=== PATIENT | male | born 1965 | race African-American/Black ===

== ENCOUNTER 2018-08-01 11:01 | Emergency (ER) | payer MEDICAID ==
[~2018-08-01] VITALS: Ht 170.2 cm; Wt 64.0 kg
[~2018-08-01 11:01] MED LIST: ACET1TAB14 PO; ALBUTEROL; ALPR1TAB2 PO; AMBIEN; ATROVUD IH; COGENTIN PO; LURA40TA PO; MONT10TA21 PO; P20 PO; SERT50TA PO; advair PO
[2018-08-01 11:15] VITALS: BP 137/89
[2018-08-01] MEDS ORDERED: BACITRACIN ZINC OINT UDPKT TOP ONE (12:00)
[2018-08-01] MEDS ORDERED: LIDOCAINE HCL/PF 1% 10 MG/ML 5ML VIAL IJ ONE (12:00)
== END 2018-08-01 14:00 | disposition home or self-care (01) ==
LOC: ER 11:01
DX: L03.012 Cellulitis of left finger (principal); J45.909 Unspecified asthma, uncomplicated; F41.9 Anxiety disorder, unspecified; F31.9 Bipolar disorder, unspecified; R07.89 Other chest pain; Z88.0 Allergy status to penicillin; Z79.899 Other long term (current) drug therapy; Z87.891 Personal history of nicotine dependence
CPT/HCPCS: 10060; 71045; 99283; J3490

== ENCOUNTER 2018-08-14 11:22 | Emergency (ER) | payer MEDICAID ==
[~2018-08-14] VITALS: Ht 170.2 cm; Wt 67.0 kg
[2018-08-14] MEDS ORDERED: IBUPROFEN 600MG TABLET PO STA (12:31)
[2018-08-14] MEDS ORDERED: ONDANSETRON 4MG ODT PO STA (12:31)
[2018-08-14 13:16] LABS: BASOPHILS % 0.5 % (0.0-2.0); HEMATOCRIT. 40.9 % (42.0-52.0); HEMOGLOBIN. 13.8 g/dL (14.0-18.0); LYMPHOCYTES % 9.6 % (20.0-50.0); MEAN CORPUSCULAR HEMOGLOBIN 31.6 pg (28.0-32.0); MEAN CORPUSCULAR VOLUME 93.4 fL (80.0-94.0); MEAN PLATELET VOLUME 7.4 fl (7.4-10.4); MONOCYTES % 4.5 % (2.0-8.0); NEUTROPHILS % 85.4 % (40.0-76.0); PLATELET 247 x1000/uL (130-400); RED BLOOD CELL COUNT 4.38 mill/uL (4.7-6.1); RED CELL DISTRIBUTION WIDTH 13.9 % (11.6-14.6)
[2018-08-14 13:30] VITALS: BP 101/64
[2018-08-14 13:32] LABS: CHLORIDE 105 mEq/L (98-107)
== END 2018-08-14 17:05 | disposition home or self-care (01) ==
LOC: ER 11:22
DX: R05 Cough (principal); R07.89 Other chest pain; R06.3 Periodic breathing; R20.0 Anesthesia of skin; R20.2 Paresthesia of skin; F41.9 Anxiety disorder, unspecified; J45.909 Unspecified asthma, uncomplicated; F17.210 Nicotine dependence, cigarettes, uncomplicated; F31.9 Bipolar disorder, unspecified; Z88.0 Allergy status to penicillin
CPT/HCPCS: 36415; 71045; 80053; 84484; 85025; 87804; 93005; 99285; Q0162

== ENCOUNTER 2018-08-21 09:35 | Emergency (ER) | payer MEDICAID ==
[~2018-08-21] VITALS: Ht 170.2 cm; Wt 64.0 kg
[2018-08-21] MEDS ORDERED: ONDANSETRON HCL 4MG/2ML INJ IV STA (11:44)
[2018-08-21] MEDS ORDERED: MORPHINE SULFATE 4 MG/ML CPJ (NOT FOR IM USE) IV STA (11:44)
[2018-08-21] MEDS ORDERED: METHYLPREDNISOLONE SOD SUCC 125 MG/2 ML VIAL IV STA (11:44)
[2018-08-21] MEDS ORDERED: SODIUM CHLORIDE 0.9% 1,000 ML IV ONE (11:44)
[2018-08-21] MEDS ORDERED: IPRATROPIUM/ALBUTEROL 0.5-3(2.5)MG/3ML NEB HHN ONE (11:45)
[2018-08-21] MEDS ORDERED: MAGNESIUM 2 G PREMIX 50 ML IV ONE (11:45)
[2018-08-21] MEDS ORDERED: LEVOFLOXACIN 750MG PREMIX 150 ML IV ONE (11:45)
[2018-08-21 13:14] LABS: INR 1.1; PARTIAL THROMBOPLASTIN TIME 31.3 sec (23.4-31.0); PROTHROMBIN TIME 10.6 sec (9.1-11.1)
[2018-08-21 13:21] LABS: BASOPHILS % 0.5 % (0.0-2.0); CHLORIDE 111 mEq/L (98-107); EOSINOPHILS % 2.2 % (0.0-5.0); ETHANOL BLOOD < 10 mg/dL; HEMATOCRIT. 41.3 % (42.0-52.0); HEMOGLOBIN. 13.9 g/dL (14.0-18.0); LYMPHOCYTES % 39.1 % (20.0-50.0); MEAN CORPUSCULAR HEMOGLOBIN 31.4 pg (28.0-32.0); MEAN CORPUSCULAR VOLUME 93.8 fL (80.0-94.0); MEAN PLATELET VOLUME 7.7 fl (7.4-10.4); MONOCYTES % 11.4 % (2.0-8.0); NEUTROPHILS % 46.8 % (40.0-76.0); PLATELET 202 x1000/uL (130-400); RED BLOOD CELL COUNT 4.41 mill/uL (4.7-6.1); RED CELL DISTRIBUTION WIDTH 13.4 % (11.6-14.6)
[2018-08-21 15:54] VITALS: BP 109/70
== END 2018-08-21 15:57 | disposition home or self-care (01) ==
LOC: ER 09:35
DX: J45.901 Unspecified asthma with (acute) exacerbation (principal); F41.9 Anxiety disorder, unspecified; F31.9 Bipolar disorder, unspecified; E78.00 Pure hypercholesterolemia, unspecified; Z87.891 Personal history of nicotine dependence; Z88.0 Allergy status to penicillin; Z79.899 Other long term (current) drug therapy
CPT/HCPCS: 36415; 71045; 80053; 83880; 84484; 85025; 85610; 85730; 93005; 94640; 96365; 96366; 96375; 99285; G0482; J1956; J2270; J2405; J2930; J3475; J7030; J7620

== ENCOUNTER 2018-10-12 11:53 | Emergency (ER) | payer MEDICAID ==
[~2018-10-12] VITALS: Ht 170.2 cm; Wt 68.0 kg
[2018-10-12] MEDS ORDERED: MAGNESIUM 2 G PREMIX 50 ML IV STA (15:07)
[2018-10-12] MEDS ORDERED: ALBUTEROL (0.083%) 2.5MG/3ML NEB HHN STA ×2 (15:07→17:21)
[2018-10-12] MEDS ORDERED: METHYLPREDNISOLONE SOD SUCC 125 MG/2 ML VIAL IV STA (15:07)
[2018-10-12] MEDS ORDERED: IPRATROPIUM BROMIDE (0.02%) 0.5MG/2.5ML NEB HHN STA ×2 (15:07→17:21)
[2018-10-12] MEDS ORDERED: SODIUM CHLORIDE 0.9% 500 ML IV ONE (17:30)
[2018-10-12] MEDS ORDERED: ALBUTEROL (0.083%) 2.5MG/3ML NEB HHN ONE (20:00)
[2018-10-12] MEDS ORDERED: IPRATROPIUM BROMIDE (0.02%) 0.5MG/2.5ML NEB HHN ONE (20:00)
[2018-10-12 20:14] LABS: CHLORIDE 104 mEq/L (98-107)
[2018-10-12 20:16] LABS: HEMATOCRIT. 41.4 % (42.0-52.0); HEMOGLOBIN. 13.8 g/dL (14.0-18.0); LYMPHOCYTES % 11.5 % (20.0-50.0); MEAN CORPUSCULAR HEMOGLOBIN 31.2 pg (28.0-32.0); MEAN CORPUSCULAR VOLUME 93.6 fL (80.0-94.0); MEAN PLATELET VOLUME 8.8 fl (7.4-10.4); MONOCYTES % 7.7 % (2.0-8.0); NEUTROPHILS % 79.8 % (40.0-76.0); PLATELET 266 x1000/uL (130-400); RED BLOOD CELL COUNT 4.43 mill/uL (4.7-6.1); RED CELL DISTRIBUTION WIDTH 13.9 % (11.6-14.6)
[2018-10-12 21:30] VITALS: BP 109/71
== END 2018-10-12 22:40 | disposition home or self-care (01) ==
LOC: ER 11:53
DX: J45.901 Unspecified asthma with (acute) exacerbation (principal); F32.9 Major depressive disorder, single episode, unspecified; F31.9 Bipolar disorder, unspecified; Z79.899 Other long term (current) drug therapy; Z88.0 Allergy status to penicillin
CPT/HCPCS: 36415; 71045; 80048; 85025; 93005; 94640; 96365; 96366; 96375; 99284; J2930; J3475; J7040; J7611

== ENCOUNTER 2019-02-04 16:06 | Inpatient (IN) | payer MEDICAID ==
[~2019-02-04] VITALS: Ht 170.2 cm; Wt 70.1 kg
[2019-02-04] MEDS ORDERED: IPRATROPIUM BROMIDE (0.02%) 0.5MG/2.5ML NEB HHN STA (21:39)
[2019-02-04] MEDS ORDERED: METHYLPREDNISOLONE SOD SUCC 125 MG/2 ML VIAL IV STA (21:39)
[2019-02-04] MEDS ORDERED: ALBUTEROL (0.083%) 2.5MG/3ML NEB HHN STA (21:39)
[2019-02-04] MEDS ORDERED: ONDANSETRON HCL 4MG/2ML INJ IV STA (21:39)
[2019-02-04] MEDS ORDERED: SODIUM CHLORIDE 0.9% 1,000 ML IV ONE (21:39)
[2019-02-04] MEDS ORDERED: MORPHINE SULFATE 4 MG/ML CPJ (NOT FOR IM USE) IV STA (21:39)
[2019-02-04 22:46] LABS: HEMOGLOBIN. 16.4 g/dL (14.0-18.0); MEAN CORPUSCULAR HEMOGLOBIN 31.2 pg (28.0-32.0); MEAN CORPUSCULAR VOLUME 91.2 fL (80.0-94.0); MEAN PLATELET VOLUME 7.9 fl (7.4-10.4); PLATELET 353 x1000/uL (130-400); RED BLOOD CELL COUNT 5.26 mill/uL (4.7-6.1); RED CELL DISTRIBUTION WIDTH 13.8 % (11.6-14.6)
[2019-02-04 22:48] LABS: CHLORIDE 106 mEq/L (98-107)
[2019-02-04 22:52] LABS: ETHANOL BLOOD < 10 mg/dL
[2019-02-04 23:04] LABS: PLATELET ESTIMATE NORMAL
[2019-02-04 23:25] LABS: CLARITY URINE CLEAR (CLEAR); COLOR URINE YELLOW (YELLOW); KETONES URINE TRACE (NEGATIVE); LEUKOCYTE ESTERASE URINE NEGATIVE (NEGATIVE); NITRITE URINE NEGATIVE (NEGATIVE); OCCULT BLOOD URINE TRACE (NEGATIVE); PROTEIN URINE NEGATIVE (NEGATIVE); SPECIFIC GRAVITY URINE 1.025 (1.005-1.030); UROBILINOGEN URINE 0.2 E.U./dL (0.2-1.0)
[2019-02-04 23:59] LABS: *AMPHETAMINES SCREEN URINE PRESUMTIVE POSITIVE (NEGATIVE); *BARBITURATES SCREEN URINE NEGATIVE (NEGATIVE); *BENZODIAZEPINES SCREEN URINE NEGATIVE (NEGATIVE)
[2019-02-05] LABS: *COCAINE SCREEN URINE PRESUMTIVE POSITIVE (NEGATIVE); CANNABINOID URINE SCREEN PRESUMTIVE POSITIVE (NEGATIVE); METHADONE URINE SCREEN NEGATIVE (NEGATIVE); OPIATES URINE SCREEN PRESUMTIVE POSITIVE (NEGATIVE); PHENCYCLIDINE URINE SCREEN NEGATIVE (NEGATIVE)
[2019-02-05] MEDS ORDERED: METRONIDAZOLE 500 MG PREMIX 100 ML IV ONE (02:00)
[2019-02-05] MEDS ORDERED: LEVOFLOXACIN 750MG PREMIX 150 ML IV ONE (02:00)
[2019-02-05] MEDS ORDERED: IOHEXOL-300 100 ML BOTTLE ONE (03:11)
[2019-02-05 11:32] VITALS: BP 100/60
[2019-02-05] MEDS ORDERED: METRONIDAZOLE 500 MG PREMIX 100 ML IV SCH ×2 (11:45→22:00)
[2019-02-05] MEDS ORDERED: ONDANSETRON HCL 4MG/2ML INJ IV PRN (11:45)
[2019-02-05 12:00] VITALS: BP 93/69
[2019-02-05] MEDS: METHYLPREDNISOLONE SOD SUCC 40 MG/ML VIAL IV SCH ×2 (13:33→20:45)
[2019-02-05] MEDS: PANTOPRAZOLE SODIUM 40 MG/VIAL IV SCH (13:33)
[2019-02-05] MEDS: SODIUM CHLORIDE 0.9% 1,000 ML IV SCH (13:34)
[2019-02-05] MEDS ORDERED: METRONIDAZOLE 500 MG PREMIX 100 ML IV NR ×2 (14:00→18:00)
[2019-02-05 16:00] VITALS: BP 106/67
[2019-02-05] MEDS: IPRATROPIUM/ALBUTEROL 0.5-3(2.5)MG/3ML NEB HHN SCH ×2 (16:45→20:28)
[2019-02-05 17:33] LABS: HEMATOCRIT. 39.4 % (42.0-52.0); HEMOGLOBIN. 13.1 g/dL (14.0-18.0); MEAN CORPUSCULAR HEMOGLOBIN 30.6 pg (28.0-32.0); MEAN CORPUSCULAR VOLUME 91.8 fL (80.0-94.0); MEAN PLATELET VOLUME 8.2 fl (7.4-10.4); PLATELET 295 x1000/uL (130-400); RED BLOOD CELL COUNT 4.29 mill/uL (4.7-6.1); RED CELL DISTRIBUTION WIDTH 13.7 % (11.6-14.6)
[2019-02-05 17:47] LABS: CHLORIDE 108 mEq/L (98-107)
[2019-02-05 17:51] LABS: AMYLASE 33 IU/L (25-115)
[2019-02-05] MEDS: METRONIDAZOLE 500 MG PREMIX 100 ML IV SCH (18:15)
[2019-02-05 18:42] LABS: PLATELET ESTIMATE NORMAL
[2019-02-05] MEDS ORDERED: IPRATROPIUM/ALBUTEROL 0.5-3(2.5)MG/3ML NEB HHN PRN (19:45)
[2019-02-05 20:00] VITALS: BP 109/62
[2019-02-06] VITALS: BP 105/60
[2019-02-06] MEDS: IPRATROPIUM/ALBUTEROL 0.5-3(2.5)MG/3ML NEB HHN SCH ×6 (00:06→20:35)
[2019-02-06] MEDS: LEVOFLOXACIN 500MG PREMIX 100 ML IV SCH (00:53)
[2019-02-06] MEDS: SODIUM CHLORIDE 0.9% 1,000 ML IV SCH ×2 (00:54→17:18)
[2019-02-06] MEDS: MORPHINE SULFATE 4 MG/ML CPJ (NOT FOR IM USE) IV PRN ×4 (01:44→23:32)
[2019-02-06] MEDS: METRONIDAZOLE 500 MG PREMIX 100 ML IV SCH ×3 (02:08→17:18)
[2019-02-06] MEDS: METHYLPREDNISOLONE SOD SUCC 40 MG/ML VIAL IV SCH ×3 (03:17→20:00)
[2019-02-06 04:00] VITALS: BP 117/67
[2019-02-06 08:29] VITALS: BP 118/81
[2019-02-06] MEDS: PANTOPRAZOLE SODIUM 40 MG/VIAL IV SCH (09:07)
[2019-02-06 12:00] VITALS: BP 113/64
[2019-02-06 16:00] VITALS: BP 102/67
[2019-02-06 21:38] VITALS: BP 118/67
[2019-02-07] VITALS: BP 100/53
[2019-02-07] MEDS: IPRATROPIUM/ALBUTEROL 0.5-3(2.5)MG/3ML NEB HHN SCH ×6 (00:13→20:40)
[2019-02-07] MEDS: LEVOFLOXACIN 500MG PREMIX 100 ML IV SCH (00:50)
[2019-02-07] MEDS: METRONIDAZOLE 500 MG PREMIX 100 ML IV SCH ×3 (02:30→18:09)
[2019-02-07 04:00] VITALS: BP 107/68
[2019-02-07] MEDS: METHYLPREDNISOLONE SOD SUCC 40 MG/ML VIAL IV SCH ×3 (04:31→20:37)
[2019-02-07] MEDS: SODIUM CHLORIDE 0.9% 1,000 ML IV SCH ×2 (04:32→18:09)
[2019-02-07 08:00] VITALS: BP 123/85
[2019-02-07] MEDS: PANTOPRAZOLE SODIUM 40 MG/VIAL IV SCH (09:51)
[2019-02-07] MEDS: MORPHINE SULFATE 4 MG/ML CPJ (NOT FOR IM USE) IV PRN ×2 (09:52→18:10)
[2019-02-07 11:48] VITALS: BP 106/64
[2019-02-07 16:00] VITALS: BP 116/77
[2019-02-07 20:00] VITALS: BP 126/78
[2019-02-08] VITALS: BP 124/76
[2019-02-08] MEDS: LEVOFLOXACIN 500MG PREMIX 100 ML IV SCH (00:13)
[2019-02-08] MEDS: IPRATROPIUM/ALBUTEROL 0.5-3(2.5)MG/3ML NEB HHN SCH ×2 (00:40→04:13)
[2019-02-08] MEDS: METRONIDAZOLE 500 MG PREMIX 100 ML IV SCH ×2 (01:27→09:28)
[2019-02-08] MEDS: MORPHINE SULFATE 4 MG/ML CPJ (NOT FOR IM USE) IV PRN (01:28)
[2019-02-08] MEDS: METHYLPREDNISOLONE SOD SUCC 40 MG/ML VIAL IV SCH ×2 (03:36→13:53)
[2019-02-08 04:00] VITALS: BP 110/56
[2019-02-08] MEDS: SODIUM CHLORIDE 0.9% 1,000 ML IV SCH (07:10)
[2019-02-08 08:00] VITALS: BP 124/78
[2019-02-08] MEDS: PANTOPRAZOLE SODIUM 40 MG/VIAL IV SCH (09:28)
[2019-02-08 12:00] VITALS: BP 136/76
[2019-02-08 16:00] VITALS: BP 149/91
[2019-02-08 16:31] VITALS: BP 144/90
== END 2019-02-08 17:10 | disposition home or self-care (01) | DRG 140 ==
LOC: ER 16:06 → 5WST 02-05 02:02 → ENRESERV 02-05 06:10
PROVIDERS: ADMIT Internal Medicine; ATTEND Internal Medicine
DX: J44.1 Chronic obstructive pulmonary disease with (acute) exacerbation (principal); R16.0 Hepatomegaly, not elsewhere classified; A09 Infectious gastroenteritis and colitis, unspecified; E86.0 Dehydration; F19.10 Other psychoactive substance abuse, uncomplicated; F31.9 Bipolar disorder, unspecified; F17.210 Nicotine dependence, cigarettes, uncomplicated; F12.10 Cannabis abuse, uncomplicated; F14.10 Cocaine abuse, uncomplicated; F15.10 Other stimulant abuse, uncomplicated; Z88.0 Allergy status to penicillin; Z59.0 Homelessness
CPT/HCPCS: 36415; 71045; 74177; 80305; 80320; 82150; 87015; 87045; 87427; 87449; 87493; 89055; 93005; 94644; 99285; C9113; J1956; J2270; J2405; J2920; J2930; J3490; J7030; J7611; J7620; Q9967; G0480

== ENCOUNTER 2019-04-14 05:42 | Emergency (ER) | payer MEDICAID ==
[~2019-04-14] VITALS: Ht 170.2 cm; Wt 81.0 kg
[2019-04-14] MEDS ORDERED: ALBUTEROL (0.083%) 2.5MG/3ML NEB HHN STA (06:32)
[2019-04-14] MEDS ORDERED: PREDNISONE 20MG TABLET PO STA (06:32)
[2019-04-14] MEDS ORDERED: SODIUM CHLORIDE 0.9% 1,000 ML IV ONE (06:32)
[2019-04-14 06:54] LABS: BASOPHILS % 0.4 % (0.0-2.0); EOSINOPHILS % 1.9 % (0.0-5.0); HEMATOCRIT. 40.1 % (42.0-52.0); HEMOGLOBIN. 13.4 g/dL (14.0-18.0); LYMPHOCYTES % 12.8 % (20.0-50.0); MEAN CORPUSCULAR HEMOGLOBIN 30.8 pg (28.0-32.0); MEAN CORPUSCULAR VOLUME 92.2 fL (80.0-94.0); MEAN PLATELET VOLUME 7.8 fl (7.4-10.4); MONOCYTES % 10.4 % (2.0-8.0); NEUTROPHILS % 74.5 % (40.0-76.0); PLATELET 269 x1000/uL (130-400); RED BLOOD CELL COUNT 4.35 mill/uL (4.7-6.1)
[2019-04-14 06:55] LABS: CHLORIDE 109 mEq/L (98-107)
[2019-04-14 07:00] LABS: ETHANOL BLOOD < 10 mg/dL
[2019-04-14 07:05] LABS: CREATINE KINASE 105 IU/L (39-308)
[2019-04-14] MEDS ORDERED: IBUPROFEN 600MG TABLET PO ONE (09:00)
[2019-04-14] MEDS ORDERED: ALBUTEROL (0.083%) 2.5MG/3ML NEB HHN ONE (09:00)
[2019-04-14 10:26] LABS: *AMPHETAMINES SCREEN URINE NEGATIVE (NEGATIVE); *BARBITURATES SCREEN URINE NEGATIVE (NEGATIVE); *BENZODIAZEPINES SCREEN URINE NEGATIVE (NEGATIVE); *COCAINE SCREEN URINE PRESUMTIVE POSITIVE (NEGATIVE); CANNABINOID URINE SCREEN PRESUMTIVE POSITIVE (NEGATIVE); METHADONE URINE SCREEN NEGATIVE (NEGATIVE); OPIATES URINE SCREEN NEGATIVE (NEGATIVE); PHENCYCLIDINE URINE SCREEN NEGATIVE (NEGATIVE)
[2019-04-14 11:00] VITALS: BP 115/65
== END 2019-04-14 11:30 | disposition home or self-care (01) ==
LOC: ER 05:42
DX: J45.901 Unspecified asthma with (acute) exacerbation (principal); T40.5X1A Poisoning by cocaine, accidental (unintentional), initial encounter; R07.89 Other chest pain; J45.909 Unspecified asthma, uncomplicated; F31.9 Bipolar disorder, unspecified; Z88.0 Allergy status to penicillin; Z79.899 Other long term (current) drug therapy; Y92.89 Other specified places as the place of occurrence of the external cause
CPT/HCPCS: 36415; 71045; 73130; 80053; 80305; 80320; 82550; 83880; 84484; 85025; 93005; 94640; 99284; J7030; J7512; J7611; Z7610; G0480

== ENCOUNTER 2019-04-20 00:52 | Emergency (ER) | payer MEDICAID ==
[~2019-04-20] VITALS: Ht 167.6 cm; Wt 73.0 kg
[2019-04-20] MEDS ORDERED: KETOROLAC 60MG/2ML VIAL IM ONE (03:00)
[2019-04-20 06:45] VITALS: BP 120/82
== END 2019-04-20 07:30 | disposition home or self-care (01) ==
LOC: ER 00:52
DX: R05 Cough (principal); R07.89 Other chest pain; J45.909 Unspecified asthma, uncomplicated; F31.9 Bipolar disorder, unspecified; Z79.899 Other long term (current) drug therapy; Z88.0 Allergy status to penicillin
CPT/HCPCS: 71046; 96372; 99283; J1885; Z7610

== ENCOUNTER 2019-04-20 08:18 | Inpatient (IN) | payer MEDICAID, OTHER ==
[~2019-04-20] VITALS: Ht 170.2 cm; Wt 70.3 kg
[2019-04-20] MEDS ORDERED: ALBUTEROL (0.083%) 2.5MG/3ML NEB HHN STA (08:29)
[2019-04-20] MEDS ORDERED: IPRATROPIUM BROMIDE (0.02%) 0.5MG/2.5ML NEB HHN STA (08:29)
[2019-04-20] MEDS ORDERED: LEVOFLOXACIN 750MG PREMIX 150 ML IV ONE (08:30)
[2019-04-20 09:20] LABS: HEMATOCRIT. 40.5 % (42.0-52.0); HEMOGLOBIN. 13.4 g/dL (14.0-18.0); MEAN CORPUSCULAR HEMOGLOBIN 30.8 pg (28.0-32.0); MEAN PLATELET VOLUME 7.8 fl (7.4-10.4); PLATELET 320 x1000/uL (130-400); RED BLOOD CELL COUNT 4.35 mill/uL (4.7-6.1); RED CELL DISTRIBUTION WIDTH 13.8 % (11.6-14.6)
[2019-04-20 09:26] LABS: CHLORIDE 105 mEq/L (98-107)
[2019-04-20] MEDS ORDERED: DOCUSATE SODIUM 100MG CAPSULE PO PRN (10:00)
[2019-04-20] MEDS ORDERED: DIPHENHYDRAMINE 50MG/ML VIAL IV PRN (10:00)
[2019-04-20] MEDS ORDERED: ACETAMINOPHEN 325MG TABLET PO PRN (10:00)
[2019-04-20] MEDS ORDERED: CLONIDINE 0.1MG TABLET PO PRN (10:00)
[2019-04-20] MEDS ORDERED: GUAIFENESIN 200MG/10ML SUGAR FREE UDC PO PRN (10:00)
[2019-04-20] MEDS ORDERED: IPRATROPIUM/ALBUTEROL 0.5-3(2.5)MG/3ML NEB INH PRN (10:00)
[2019-04-20] MEDS ORDERED: ONDANSETRON HCL 4MG/2ML INJ IV PRN (10:00)
[2019-04-20] MEDS ORDERED: MAGNESIUM/ALUMINUM HYDROXIDE/SIMETHICONE 30ML UDC PO PRN (10:00)
[2019-04-20 10:13] LABS: PLATELET ESTIMATE NORMAL
[2019-04-20] MEDS ORDERED: IPRATROPIUM/ALBUTEROL 0.5-3(2.5)MG/3ML NEB HHN ONE (10:45)
[2019-04-20] MEDS ORDERED: MORPHINE SULFATE 2 MG/ML CPJ (NOT FOR IM USE) IV NR (10:45)
[2019-04-20 11:04] LABS: BG BASE EXCESS -0.2 mmol/L (-2.0-2.0); BG CARBOXYHEMOGLOBIN 0.9 % (0.5-1.5); BG DEOXYHEMOGLOBIN 4.6 % (0.0-5.0); BG FRACTION INSPIRED OXYGEN 28; BG HCO3 ACT 23.8 mmol/L (22.0-26.0); BG METHEMOGLOBIN 0.1 % (0.0-1.5); BG OXYGEN SATURATION 95.4 % (92.0-98.5); BG OXYHEMOGLOBIN 94.4 % (94.0-97.0); BG PCO2 36.8 mmHg (35.0-45.0); BG PH 7.429 (7.350-7.450); BG PO2 77.3 mmHg (75.0-100.0); BG SAMPLE SITE RIGHT RADIAL; BG TOTAL HEMOGLOBIN 13.3 g/dL (12.0-18.0); BG VENT MODE NASAL CANNULA
[2019-04-20 15:22] VITALS: BP 138/75
[2019-04-20 15:30] VITALS: BP 138/75
[2019-04-20] MEDS ORDERED: BENZONATATE 100MG CAPSULE PO PRN (16:15)
[2019-04-20] MEDS: BUDESONIDE 0.5MG/2ML NEB HHN SCH ×2 (16:22→20:47)
[2019-04-20 16:33] LABS: CLARITY URINE CLEAR (CLEAR); COLOR URINE DARK YELLOW (YELLOW); KETONES URINE NEGATIVE (NEGATIVE); LEUKOCYTE ESTERASE URINE NEGATIVE (NEGATIVE); NITRITE URINE NEGATIVE (NEGATIVE); OCCULT BLOOD URINE TRACE (NEGATIVE); PROTEIN URINE TRACE (NEGATIVE); SPECIFIC GRAVITY URINE 1.028 (1.005-1.030)
[2019-04-20] MEDS: MONTELUKAST SODIUM 10MG TABLET PO SCH (16:33)
[2019-04-20] MEDS: ENOXAPARIN 40MG/0.4ML SYR SUBCUT SCH (16:33)
[2019-04-20 16:52] LABS: *BENZODIAZEPINES SCREEN URINE NEGATIVE (NEGATIVE); *COCAINE SCREEN URINE PRESUMTIVE POSITIVE (NEGATIVE)
[2019-04-20 16:53] LABS: *AMPHETAMINES SCREEN URINE PRESUMTIVE POSITIVE (NEGATIVE); *BARBITURATES SCREEN URINE NEGATIVE (NEGATIVE); CANNABINOID URINE SCREEN PRESUMTIVE POSITIVE (NEGATIVE); METHADONE URINE SCREEN NEGATIVE (NEGATIVE); OPIATES URINE SCREEN PRESUMTIVE POSITIVE (NEGATIVE); PHENCYCLIDINE URINE SCREEN NEGATIVE (NEGATIVE)
[2019-04-20] MEDS: AZITHROMYCIN 500 MG in DEXT 5% WATER 250 ML IV SCH (17:44)
[2019-04-20] MEDS: HYDROCODONE/ACETAMINOPHEN 5/325MG TABLET PO PRN ×2 (17:52→22:08)
[2019-04-20 19:33] LABS: CREATINE KINASE 40 IU/L (39-308); CREATINE KINASE MB FRACTION < 1.0 ng/mL (0.5-3.6)
[2019-04-20 20:00] VITALS: BP 109/61
[2019-04-20] MEDS: FAMOTIDINE 20MG TABLET PO SCH (20:17)
[2019-04-20] MEDS: IPRATROPIUM/ALBUTEROL 0.5-3(2.5)MG/3ML NEB HHN SCH ×2 (20:47→23:55)
[2019-04-20] MEDS: ACETYLCYSTEINE 100MG/ML 10% VIAL 4ML INH SCH (23:55)
[2019-04-21] VITALS: BP 126/50
[2019-04-21 00:24] LABS: CREATINE KINASE 41 IU/L (39-308)
[2019-04-21 00:25] LABS: CREATINE KINASE MB FRACTION < 1.0 ng/mL (0.5-3.6)
[2019-04-21] MEDS: HYDROCODONE/ACETAMINOPHEN 5/325MG TABLET PO PRN ×3 (03:36→21:22)
[2019-04-21 04:00] VITALS: BP 116/70
[2019-04-21] MEDS: IPRATROPIUM/ALBUTEROL 0.5-3(2.5)MG/3ML NEB HHN SCH ×6 (04:17→23:57)
[2019-04-21 08:00] VITALS: BP 108/66
[2019-04-21] MEDS: ACETYLCYSTEINE 100MG/ML 10% VIAL 4ML INH SCH ×2 (08:09→23:57)
[2019-04-21] MEDS: BUDESONIDE 0.5MG/2ML NEB HHN SCH ×2 (08:09→20:25)
[2019-04-21] MEDS: FAMOTIDINE 20MG TABLET PO SCH ×2 (08:19→20:31)
[2019-04-21 08:24] LABS: CHLORIDE 105 mEq/L (98-107)
[2019-04-21 08:39] LABS: LDL CHOLESTEROL 53 mg/dL (5-100)
[2019-04-21 08:40] LABS: HDL CHOLESTEROL 56 mg/dL (40-59)
[2019-04-21] MEDS: LEVOFLOXACIN 500MG PREMIX 100 ML IV SCH (09:39)
[2019-04-21 10:49] LABS: BASOPHILS % 1.4 % (0.0-2.0); EOSINOPHILS % 0.9 % (0.0-5.0); HEMATOCRIT. 36.9 % (42.0-52.0); HEMOGLOBIN. 12.3 g/dL (14.0-18.0); LYMPHOCYTES % 9.6 % (20.0-50.0); MEAN CORPUSCULAR HEMOGLOBIN 30.8 pg (28.0-32.0); MEAN CORPUSCULAR VOLUME 92.8 fL (80.0-94.0); MEAN PLATELET VOLUME 8.3 fl (7.4-10.4); MONOCYTES % 8.2 % (2.0-8.0); NEUTROPHILS % 79.9 % (40.0-76.0); PLATELET 291 x1000/uL (130-400); RED BLOOD CELL COUNT 3.97 mill/uL (4.7-6.1)
[2019-04-21 12:00] VITALS: BP 108/73
[2019-04-21] MEDS: ENOXAPARIN 40MG/0.4ML SYR SUBCUT SCH (15:10)
[2019-04-21 15:59] VITALS: BP 108/71
[2019-04-21] MEDS: MONTELUKAST SODIUM 10MG TABLET PO SCH (17:35)
[2019-04-21] MEDS: AZITHROMYCIN 500 MG in DEXT 5% WATER 250 ML IV SCH (17:36)
[2019-04-22] VITALS: BP 110/70
[2019-04-22 04:00] VITALS: BP_SYST 120; BP_SYST 140; BP_DIAS 79; BP_DIAS 80
[2019-04-22] MEDS: IPRATROPIUM/ALBUTEROL 0.5-3(2.5)MG/3ML NEB HHN SCH ×5 (04:33→21:01)
[2019-04-22 06:13] LABS: BASOPHILS % 0.4 % (0.0-2.0); EOSINOPHILS % 1.7 % (0.0-5.0); HEMATOCRIT. 37.1 % (42.0-52.0); HEMOGLOBIN. 12.6 g/dL (14.0-18.0); MEAN CORPUSCULAR HEMOGLOBIN 31.2 pg (28.0-32.0); MEAN CORPUSCULAR VOLUME 91.7 fL (80.0-94.0); MONOCYTES % 7.9 % (2.0-8.0); PLATELET 336 x1000/uL (130-400); RED BLOOD CELL COUNT 4.04 mill/uL (4.7-6.1); RED CELL DISTRIBUTION WIDTH 13.2 % (11.6-14.6)
[2019-04-22] MEDS: HYDROCODONE/ACETAMINOPHEN 5/325MG TABLET PO PRN ×2 (06:16→12:38)
[2019-04-22 06:35] LABS: CHLORIDE 104 mEq/L (98-107)
[2019-04-22 08:00] VITALS: BP 103/63
[2019-04-22] MEDS: BUDESONIDE 0.5MG/2ML NEB HHN SCH ×2 (08:25→21:02)
[2019-04-22] MEDS: ACETYLCYSTEINE 100MG/ML 10% VIAL 4ML INH SCH ×2 (08:25→16:21)
[2019-04-22] MEDS: FAMOTIDINE 20MG TABLET PO SCH ×2 (08:34→20:00)
[2019-04-22] MEDS: LEVOFLOXACIN 500MG PREMIX 100 ML IV SCH (11:09)
[2019-04-22 12:00] VITALS: BP 110/83
[2019-04-22] MEDS ORDERED: ONDANSETRON HCL 4MG TABLET PO PRN (15:30)
[2019-04-22 16:00] VITALS: BP 108/84
[2019-04-22] MEDS: ENOXAPARIN 40MG/0.4ML SYR SUBCUT SCH (16:24)
[2019-04-22] MEDS: AZITHROMYCIN 500 MG in DEXT 5% WATER 250 ML IV SCH (17:39)
[2019-04-22] MEDS: MONTELUKAST SODIUM 10MG TABLET PO SCH (17:39)
[2019-04-22 20:00] VITALS: BP 122/72
[2019-04-23] MEDS: IPRATROPIUM/ALBUTEROL 0.5-3(2.5)MG/3ML NEB HHN SCH ×6 (00:05→20:42)
[2019-04-23] MEDS: ACETYLCYSTEINE 100MG/ML 10% VIAL 4ML INH SCH ×3 (00:06→16:35)
[2019-04-23 00:47] VITALS: BP 118/77
[2019-04-23 04:00] VITALS: BP 121/82
[2019-04-23] MEDS: AZITHROMYCIN 500 MG TABLET PO SCH (08:06)
[2019-04-23] MEDS: FAMOTIDINE 20MG TABLET PO SCH ×2 (08:06→20:14)
[2019-04-23] MEDS: HYDROCODONE/ACETAMINOPHEN 5/325MG TABLET PO PRN ×3 (08:28→20:14)
[2019-04-23] MEDS: BUDESONIDE 0.5MG/2ML NEB HHN SCH (09:19)
[2019-04-23] MEDS ORDERED: CYCLOBENZAPRINE 10MG TABLET PO PRN (12:15)
[2019-04-23] MEDS: MONTELUKAST SODIUM 10MG TABLET PO SCH (16:08)
[2019-04-23] MEDS: LEVOFLOXACIN 500MG TABLET PO SCH (16:09)
[2019-04-23] MEDS: ENOXAPARIN 40MG/0.4ML SYR SUBCUT SCH (16:09)
[2019-04-23 20:00] VITALS: BP 116/72
[2019-04-24] VITALS: BP 109/71
[2019-04-24] MEDS: IPRATROPIUM/ALBUTEROL 0.5-3(2.5)MG/3ML NEB HHN SCH ×6 (00:41→20:08)
[2019-04-24] MEDS: ACETYLCYSTEINE 100MG/ML 10% VIAL 4ML INH SCH ×3 (00:42→16:40)
[2019-04-24 04:00] VITALS: BP 103/69
[2019-04-24 07:03] LABS: MEAN CORPUSCULAR HEMOGLOBIN 31.1 pg (28.0-32.0); MEAN CORPUSCULAR VOLUME 91.4 fL (80.0-94.0); MEAN PLATELET VOLUME 7.4 fl (7.4-10.4); PLATELET 383 x1000/uL (130-400); RED BLOOD CELL COUNT 4.64 mill/uL (4.7-6.1)
[2019-04-24 07:22] LABS: HEMOGLOBIN. 14.3 g/dL (14.0-18.0)
[2019-04-24 07:23] LABS: HEMATOCRIT. 42.5 % (42.0-52.0); RED CELL DISTRIBUTION WIDTH 13.4 % (11.6-14.6)
[2019-04-24 07:40] LABS: CHLORIDE 101 mEq/L (98-107)
[2019-04-24 08:00] VITALS: BP 117/78
[2019-04-24] MEDS: AZITHROMYCIN 500 MG TABLET PO SCH (08:31)
[2019-04-24] MEDS: FAMOTIDINE 20MG TABLET PO SCH (08:31)
[2019-04-24 11:48] LABS: PLATELET ESTIMATE INCREASED
[2019-04-24 12:00] VITALS: BP 107/78
[2019-04-24] MEDS ORDERED: GUAIFENESIN-DM 200MG-20MG/10ML UDC PO PRN (16:30)
[2019-04-24] MEDS ORDERED: TUSSL PO (17:00)
[2019-04-24] MEDS ORDERED: FAMO20TA8 PO (17:00)
[2019-04-24] MEDS ORDERED: IPRA3AMP9 NEB (17:00)
[2019-04-24] MEDS: ENOXAPARIN 40MG/0.4ML SYR SUBCUT SCH (17:08)
[2019-04-24] MEDS: LEVOFLOXACIN 500MG TABLET PO SCH (17:08)
[2019-04-24] MEDS ORDERED: AZIT500T5 MT (17:08)
[2019-04-24] MEDS: MONTELUKAST SODIUM 10MG TABLET PO SCH (17:08)
[2019-04-24 18:40] VITALS: BP 101/71
== END 2019-04-24 21:25 | disposition home or self-care (01) | DRG 720 ==
LOC: ER 08:18 → 8WST 08:51 → ENRESERV 13:28
PROVIDERS: ADMIT Internal Medicine; ATTEND Internal Medicine
DX: A41.9 Sepsis, unspecified organism (principal); J96.00 Acute respiratory failure, unspecified whether with hypoxia or hypercapnia; J44.1 Chronic obstructive pulmonary disease with (acute) exacerbation; D64.9 Anemia, unspecified; F31.9 Bipolar disorder, unspecified; F19.10 Other psychoactive substance abuse, uncomplicated; T40.601A Poisoning by unspecified narcotics, accidental (unintentional), initial encounter; T40.5X1A Poisoning by cocaine, accidental (unintentional), initial encounter; T40.7X1A Poisoning by cannabis (derivatives), accidental (unintentional), initial encounter; F12.10 Cannabis abuse, uncomplicated; F15.10 Other stimulant abuse, uncomplicated; R73.9 Hyperglycemia, unspecified; F14.10 Cocaine abuse, uncomplicated; E78.5 Hyperlipidemia, unspecified; J68.0 Bronchitis and pneumonitis due to chemicals, gases, fumes and vapors; Z87.891 Personal history of nicotine dependence; Z88.0 Allergy status to penicillin; Z82.49 Family history of ischemic heart disease and other diseases of the circulatory system; Y92.89 Other specified places as the place of occurrence of the external cause
CPT/HCPCS: 36415; 36600; 71045; 80048; 80061; 80305; 82375; 82550; 82553; 82805; 83036; 83735; 84100; 84443; 93005; 93970; 94640; 97116; 97162; 97166; 97530; 97535; J0456; J1650; J1956; J2270; J2405; J7050; J7060; J7608; J7611; J7620; J7626

== ENCOUNTER 2021-02-27 20:04 | Inpatient (IN) | payer MEDICAID ==
[~2021-02-27] VITALS: Ht 170.2 cm; Wt 86.2 kg
[~2021-02-27 20:04] MED LIST changes: +AZIT500T8 MT; +FAMO20TA8 PO; +IPRA3AMP9 NEB; +TUSSL PO
[2021-02-27] MEDS ORDERED: ALBUTEROL (0.083%) 2.5MG/3ML NEB HHN STA (20:13)
[2021-02-27] MEDS ORDERED: IPRATROPIUM BROMIDE (0.02%) 0.5MG/2.5ML NEB HHN STA (20:13)
[2021-02-27] MEDS ORDERED: METHYLPREDNISOLONE SOD SUCC 125 MG/2 ML VIAL IV STA (20:13)
[2021-02-27] MEDS ORDERED: MAGNESIUM 2 G PREMIX 50 ML IV STA (20:13)
[2021-02-27] MEDS ORDERED: AZITHROMYCIN 500 MG in DEXT 5% WATER 250 ML IV ONE (20:15)
[2021-02-27] MEDS ORDERED: CEFTRIAXONE 1 G PREMIX 50 ML IV ONE (20:15)
[2021-02-27 20:58] LABS: BASOPHILS % 1.1 % (0.0-2.0); EOSINOPHILS % 8.9 % (0.0-5.0); HEMATOCRIT. 46.9 % (42.0-52.0); HEMOGLOBIN. 15.7 g/dL (14.0-18.0); LYMPHOCYTES % 31.5 % (20.0-50.0); MEAN CORPUSCULAR HEMOGLOBIN 30.1 pg (28.0-32.0); MEAN PLATELET VOLUME 8.4 fl (7.4-10.4); MONOCYTES % 13.9 % (2.0-8.0); NEUTROPHILS % 44.6 % (40.0-76.0); PLATELET 228 x1000/uL (130-400); RED BLOOD CELL COUNT 5.21 mill/uL (4.7-6.1); RED CELL DISTRIBUTION WIDTH 15.4 % (11.6-14.6)
[2021-02-27 21:14] LABS: CHLORIDE 106 mEq/L (98-107)
[2021-02-27 21:38] LABS: BG CARBOXYHEMOGLOBIN 1.2 % (0.5-1.5); BG DEOXYHEMOGLOBIN 2.6 % (0.0-5.0); BG FRACTION INSPIRED OXYGEN 60; BG HCO3 ACT 23.5 mmol/L (22.0-26.0); BG METHEMOGLOBIN 0.2 % (0.0-1.5); BG OXYGEN SATURATION 97.4 % (92.0-98.5); BG PCO2 42.8 mmHg (35.0-45.0); BG PH 7.358 (7.350-7.450); BG PO2 98.9 mmHg (75.0-100.0); BG SAMPLE SITE RIGHT RADIAL; BG TOTAL HEMOGLOBIN 14.7 g/dL (12.0-18.0); BG VENT MODE MASK - SIMPLE
[2021-02-27] MEDS: NITROGLYCERIN 0.4MG TABLET SL SL PRN ×2 (22:00→22:13)
[2021-02-27] MEDS ORDERED: NITROGLYCERIN SPRAY/4.9GM CAN TL ONE (22:00)
[2021-02-27] MEDS ORDERED: ACETAMINOPHEN 325MG TABLET PO ONE (22:00)
[2021-02-28 03:42] LABS: CLARITY URINE CLEAR (CLEAR); COLOR URINE YELLOW (YELLOW); KETONES URINE TRACE (NEGATIVE); LEUKOCYTE ESTERASE URINE NEGATIVE (NEGATIVE); NITRITE URINE NEGATIVE (NEGATIVE); OCCULT BLOOD URINE NEGATIVE (NEGATIVE); PROTEIN URINE NEGATIVE (NEGATIVE); SPECIFIC GRAVITY URINE 1.026 (1.005-1.030)
[2021-02-28 04:16] VITALS: BP 116/76
[2021-02-28] MEDS ORDERED: NITROGLYCERIN 0.4MG TABLET SL SL PRN (05:30)
[2021-02-28] MEDS ORDERED: ASPIRIN 81MG TABLET PO PRN (05:30)
[2021-02-28 05:52] VITALS: BP 116/76
[2021-02-28] MEDS ORDERED: ZOLP5TAB2 PO (05:57)
[2021-02-28] MEDS ORDERED: IPRATROPIUM/ALBUTEROL 0.5-3(2.5)MG/3ML NEB HHN PRN (06:00)
[2021-02-28] MEDS ORDERED: NON FORMULARY PATIENT HOME MED XX SCH (06:00)
[2021-02-28] MEDS ORDERED: HYDROCODONE/APAP 7.5/325MG 1 TAB TABLET PO PRN (06:15)
[2021-02-28] MEDS ORDERED: HYDROCODONE/ACETAMINOPHEN 5/325MG TABLET PO PRN (07:00)
[2021-02-28 08:00] VITALS: BP 126/77
[2021-02-28] MEDS: ASPIRIN 81MG TABLET PO SCH (08:10)
[2021-02-28] MEDS: FAMOTIDINE 20MG TABLET PO SCH ×2 (08:11→20:57)
[2021-02-28] MEDS: ALPRAZOLAM 0.5 MG TABLET PO SCH (08:12)
[2021-02-28] MEDS: SERTRALINE HCL 50MG TABLET PO SCH (08:50)
[2021-02-28] MEDS ORDERED: FAMOTIDINE 20MG TABLET PO SCH (09:00)
[2021-02-28] MEDS ORDERED: BENZTROPINE MESYLATE 1MG TABLET PO SCH (09:00)
[2021-02-28] MEDS ORDERED: METOPROLOL TARTRATE 25MG TABLET PO SCH (09:00)
[2021-02-28 12:00] VITALS: BP 105/59
[2021-02-28] MEDS: METHYLPREDNISOLONE SOD SUCC 40 MG/ML VIAL IV SCH ×2 (14:33→20:57)
[2021-02-28] MEDS: ALBUTEROL 6.7GM HFA INHALER ORI SCH ×2 (14:50→20:54)
[2021-02-28 15:23] LABS: PHENCYCLIDINE URINE SCREEN NEGATIVE (NEGATIVE)
[2021-02-28 15:24] LABS: *AMPHETAMINES SCREEN URINE PRESUMTIVE POSITIVE (NEGATIVE); *BARBITURATES SCREEN URINE NEGATIVE (NEGATIVE); *BENZODIAZEPINES SCREEN URINE NEGATIVE (NEGATIVE); *COCAINE SCREEN URINE PRESUMTIVE POSITIVE (NEGATIVE); CANNABINOID URINE SCREEN PRESUMTIVE POSITIVE (NEGATIVE); METHADONE URINE SCREEN NEGATIVE (NEGATIVE)
[2021-02-28 16:00] VITALS: BP 124/94
[2021-02-28] MEDS: MONTELUKAST SODIUM 10MG TABLET PO SCH (16:06)
[2021-02-28 16:11] LABS: OPIATES URINE SCREEN NEGATIVE (NEGATIVE)
[2021-02-28 20:00] VITALS: BP 124/84
[2021-02-28] MEDS: ENOXAPARIN 30MG/0.3ML SYR SUBCUT SCH (20:57)
[2021-03-01] VITALS: BP 121/71
[2021-03-01] MEDS: ALBUTEROL 6.7GM HFA INHALER ORI SCH (01:11)
[2021-03-01 04:00] VITALS: BP 127/70
[2021-03-01] MEDS: METHYLPREDNISOLONE SOD SUCC 40 MG/ML VIAL IV SCH (05:25)
[2021-03-01 08:00] VITALS: BP 103/61
[2021-03-01] MEDS: ALBUTEROL (0.083%) 2.5MG/3ML NEB HHN SCH ×2 (08:22→14:41)
[2021-03-01] MEDS: FAMOTIDINE 20MG TABLET PO SCH ×2 (09:10→21:18)
[2021-03-01] MEDS: ALPRAZOLAM 0.5 MG TABLET PO SCH (09:10)
[2021-03-01] MEDS: ASPIRIN 81MG TABLET PO SCH (09:11)
[2021-03-01] MEDS: SERTRALINE HCL 50MG TABLET PO SCH ×2 (09:11→09:15)
[2021-03-01] MEDS: ENOXAPARIN 30MG/0.3ML SYR SUBCUT SCH ×2 (09:12→21:19)
[2021-03-01 12:00] VITALS: BP 100/52
[2021-03-01] MEDS: NICOTINE 14MG PATCH TD SCH (15:09)
[2021-03-01] MEDS: METHYLPREDNISOLONE SOD SUCC 125 MG/2 ML VIAL IV SCH ×2 (15:09→21:18)
[2021-03-01 16:05] VITALS: BP 113/53
[2021-03-01] MEDS ORDERED: BENZONATATE 100MG CAPSULE PO PRN (17:45)
[2021-03-01] MEDS: MONTELUKAST SODIUM 10MG TABLET PO SCH (19:18)
[2021-03-01 20:00] VITALS: BP 126/91
[2021-03-02] VITALS: BP 120/84
[2021-03-02] MEDS: ALBUTEROL (0.083%) 2.5MG/3ML NEB HHN SCH ×3 (01:05→14:54)
[2021-03-02 04:00] VITALS: BP 119/78
[2021-03-02] MEDS: METHYLPREDNISOLONE SOD SUCC 125 MG/2 ML VIAL IV SCH ×2 (05:00→12:40)
[2021-03-02] MEDS: FAMOTIDINE 20MG TABLET PO SCH (07:46)
[2021-03-02] MEDS: ALPRAZOLAM 0.5 MG TABLET PO SCH (07:47)
[2021-03-02] MEDS: ASPIRIN 81MG TABLET PO SCH (07:47)
[2021-03-02] MEDS: NICOTINE 14MG PATCH TD SCH (07:48)
[2021-03-02 08:00] VITALS: BP 126/78
[2021-03-02] MEDS ORDERED: LORATADINE 10MG TABLET PO SCH (09:00)
[2021-03-02 12:00] VITALS: BP 98/60
[2021-03-02] MEDS: ENOXAPARIN 30MG/0.3ML SYR SUBCUT SCH (12:40)
[2021-03-02] MEDS ORDERED: ALBU18HF2 IH (12:56)
[2021-03-02] MEDS ORDERED: P20 MT (12:56)
[2021-03-02] MEDS ORDERED: FLUT1DIS3 INH (12:56)
[2021-03-02 14:29] VITALS: BP 126/91
[2021-03-02 14:30] VITALS: BP 126/91
== END 2021-03-02 15:10 | disposition home or self-care (01) | DRG 140 ==
LOC: ER 20:04 → 7WST 22:08 → ENRESERV 02-28 03:23 → 5WST 03-01 01:20
PROVIDERS: ADMIT Internal Medicine; ATTEND Internal Medicine
PROC: 5A09357 Assistance with Respiratory Ventilation, Less than 24 Consecutive Hours, Continuous Positive Airway Pressure (ICD-10-PCS; principal; 2021-02-27)
DX: J44.1 Chronic obstructive pulmonary disease with (acute) exacerbation (principal); J96.01 Acute respiratory failure with hypoxia; D72.10 Eosinophilia, unspecified; J45.901 Unspecified asthma with (acute) exacerbation; F14.10 Cocaine abuse, uncomplicated; F12.10 Cannabis abuse, uncomplicated; Z20.822 Contact with and (suspected) exposure to COVID-19; F17.210 Nicotine dependence, cigarettes, uncomplicated; I10 Essential (primary) hypertension; F15.10 Other stimulant abuse, uncomplicated; Z88.0 Allergy status to penicillin; Z71.51 Drug abuse counseling and surveillance of drug abuser; Y92.89 Other specified places as the place of occurrence of the external cause
CPT/HCPCS: 36415; 36600; 71045; 80048; 80076; 80305; 81003; 82375; 82805; 83605; 84145; 84484; 85025; 85379; 93005; 94640; 94644; 99285; J0456; J0696; J1650; J2920; J2930; J3475; J7060; U0003